=== PATIENT | female | born 1980 | race Caucasian/White ===

== ENCOUNTER → 2024-01-04 09:09 | Outpatient (REF) | payer BC, SELFPAY | LOC: DHCBS MAIN 09:09 | PROVIDERS: ATTENDING PHYSICIAN Internal Medicine Cardiovascular Disease; FAMILY PHYSICIAN Family Medicine | DX: I48.0 Paroxysmal atrial fibrillation (principal) | CPT/HCPCS: 93306 ==

== ENCOUNTER → 2025-04-21 11:11 | Outpatient (REF) | payer BC, SELFPAY | LOC: RCS 11:11 | PROVIDERS: ATTENDING PHYSICIAN Internal Medicine Cardiovascular Disease; FAMILY PHYSICIAN Family Medicine | DX: I25.42 Coronary artery dissection (principal); I48.0 Paroxysmal atrial fibrillation | CPT/HCPCS: 93306 ==

== ENCOUNTER 2025-05-10 06:22 | Day surgery (SDC) | payer BC, SELFPAY ==
[2025-05-10] VITALS (8 sets, daily range): BP systolic 98–125; BP diastolic 57–84; BMI 25.5
[2025-05-10] MEDS: NORMOSOL-R/PLASMALYTE-A 1000 IV (11:45)
[2025-05-10] MEDS: NEURONTIN 300 MG PO (11:48)
[2025-05-10] MEDS: TYLENOL 1000 MG PO (11:48)
[2025-05-10 12:12] LABS: Hematocrit 37.9 % (37.0-47.0); Hemoglobin 13.2 g/dL (12.0-16.0)
[2025-05-10] MEDS: VIBRAMYCIN 270 MG IV (13:46)
--- NOTE | 2025-05-11 20:41 | W.IMMPOSTOP ---
Surgical Immed Post Op Note
-
Primary Surgeon: Veena Cesar DO
Assisting Surgeon: none
Pre-op Diagnosis:Missed miscarriage
Post-op Diagnosis: same
Procedure Performed: Dilation and evacuation
Anesthesia Type: general LMA Dr Thornton
Specimen / Cultures: products of conception
Estimated Blood Loss: 10mL
Complications: none
Operative Findings: Uterus sounded to 9cm. Products of conception visualized upon suction.
Counts correct times 2.
Stable to recovery.
Sponge and instrument counts correct.
== END 2025-05-10 18:29 | disposition home or self-care (01) ==
LOC: SDS 06:22
PROVIDERS: ATTENDING PHYSICIAN Obstetrics & Gynecology
DX: O02.1 Missed abortion (principal)
CPT/HCPCS: 59820; 88305; 85014; 85018; 86850; 86900; 86901